=== PATIENT | female | born 1965 | race Caucasian/White ===

== ENCOUNTER → 2023-04-09 | Outpatient (CLI) | payer OTHER ==
--- NOTE | 2023-04-13 09:31 | MR ---
EXAMINATION TYPE: MR shoulder LT wo con DATE OF EXAM: 04/09/2023 COMPARISON: X-ray 03/23/2023 HISTORY: L shoulder pain TECHNIQUE: Multiplanar, multisequence imaging of the left shoulder is performed without contrast. FINDINGS: Rotator Cuff: Marked thickening and increased signal involving the distal 1.5 cm of the infraspinatus and supraspinatus tendons compatible severe tendinosis. There is a loss of visualization of the 5 mm of the anterior fibers at the insertion of the supraspinatus tendon. Findings suspicious for partial thickness degenerative tear. Acromioclavicular Joint: Hypertrophic changes and severe narrowing the AC joint with impingement of t he supraspinatus tendon and muscle. Glenohumeral Joint: Joint spaces preserved with a tiny joint effusion. There is thickening of the inf erior glenohumeral ligament and axillary recess which could be associated with sprain and correlate f or symptoms of frozen shoulder. Coracohumeral ligament appears to measure 2 mm and within normal limi ts. Labrum: There is a large area of abnormal signal suspicious for a SLAP tear Biceps Tendon: The long head of biceps is in normal location within bicipital groove. Bone marrow signal: Degenerative marrow signal involving the AC joint. Other: No additional significant abnormality is appreciated. IMPRESSION: 1. SLAP tear 2. Severe tendinosis of the distal 1.5 cm of the infraspinatus and supraspinatus tendons extending to the insertion. Findings are suspicious for a 5 mm partial non through thickness degenerative tear of the anterior fibers of the supraspinatus tendon at its insertion. 3. Thickening of the inferior glenohumeral ligament. This can be associated with a sprain. Correlate for symptoms of frozen shoulder. 4. Impingement secondary to AC joint arthropathy.
== END | disposition home or self-care (01) ==
LOC: RADMRIMAIN 12:28
PROVIDERS: ATTEND Orthopaedic Surgery
DX: S43.432A Superior glenoid labrum lesion of left shoulder, initial encounter (principal); M19.012 Primary osteoarthritis, left shoulder; M67.814 Other specified disorders of tendon, left shoulder

== ENCOUNTER → 2023-05-03 | Outpatient (CLI) | payer OTHER ==
[2023-05-03 13:28] LABS: Basophils # (A) 0.04 X 10*3/uL (0.00-0.10); Basophils % (A) 0.8 %; Eosinophils # (A) 0.12 X 10*3/uL (0.04-0.35); Eosinophils % (A) 2.4 %; HCT 40.3 % (37.2-46.3); HGB 13.3 d/dL (12.0-15.0); Lymphocytes # (A) 1.58 X 10*3/uL (0.90-5.00); Lymphocytes % (A) 32.1 %; MCH 32.4 pg (27.0-32.0); MCV 98.1 FL (80.0-97.0); Mean Platelet Volume 9.7 FL (9.5-12.2); Monocytes # (A) 0.45 X 10*3/uL (0.20-1.00); Monocytes % (A) 9.1 %; NRBC Per 100 WBC 0 X 10*3/uL (0.00-0.01); Neutrophils # (A) 2.72 X 10*3/uL (1.80-7.70); Neutrophils % (A) 55.4 %; Platelet Count 374 X 10*3/uL (140-440); RBC 4.11 X 10*6/uL (4.10-5.20); RDW 12.3 % (11.5-14.5); WBC 4.92 X 10*3/uL (4.50-10.00)
[2023-05-03 14:07] LABS: Anion Gap 9.7 mmol/L (4.00-12.00); Carbon Dioxide 25.3 mmol/L (21.6-31.8); Potassium 4.6 mmol/L (3.5-5.5)
== END | disposition home or self-care (01) ==
LOC: LABPAT 07:48
PROVIDERS: ATTEND Orthopaedic Surgery
DX: Z01.818 Encounter for other preprocedural examination (principal); M75.41 Impingement syndrome of right shoulder
CPT/HCPCS: 80051; 85025; 93005

== ENCOUNTER 2023-05-19 06:01 | Day surgery (SDC) | payer OTHER ==
--- NOTE | 2023-05-18 13:47 | HP ---
HISTORY AND PHYSICAL DATE OF SCHEDULED SURGERY: 05/19/2023. HISTORY OF PRESENT ILLNESS: Terra Ibrahim is a 57-year-old patient seen with progressive left shoulder pain. We discussed options regarding treatment, she elected to proceed with left shoulder arthroscopy. Consent obtained. PAST MEDICAL HISTORY: Asthma, hypertension, hyperlipidemia. PAST SURGICAL HISTORY: section, carotid endarterectomy. DAILY MEDICATIONS: 1. Albuterol. 2. Aspirin. 3. Enalapril. 4. Motrin. 5. Rosuvastatin. ALLERGIES: Neosporin. SOCIAL HISTORY: She denies current tobacco use. PHYSICAL EVALUATION OF LEFT SHOULDER: Flexion is 90 degrees, abduction is 90 degrees. External rotation is 40 degrees with pain and weakness. Tenderness along the anterolateral acromion rotator cuff insertion. Impingement positive at 70 degrees. Cross-body adduction sign is positive. Drop-arm sign is positive. Distal neurovascular exam is intact. RADIOGRAPHS: Left shoulder radiographs revealed a type 2 acromion evidence for acromioclavicular joint osteoarthritis, cystic changes of the greater tuberosity. MRI left shoulder revealed rotator cuff tear, labral tear, impingement along with acromioclavicular joint osteoarthritis. IMPRESSION: 1. Left shoulder impingement with rotator cuff tear. 2. Left shoulder labral tear. 3. Left shoulder acromioclavicular joint osteoarthritis. 4. Left shoulder adhesive capsulitis. 5. Hypertension. 6. Hyperlipidemia. PLAN: Left shoulder arthroscopy, subacromial decompression, arthroscopic rotator cuff repair, Landy procedure, debridement of labral tear and arthroscopic lysis of adhesions. MMODL / IJN: [id number] /
[2023-05-19] MEDS ORDERED: ONDANSETRON 4 MG/2 ML VIAL IVP ONE (06:47)
[2023-05-19] MEDS ORDERED: LACTATED RINGERS 1,000 ML IV SCH (06:47)
[2023-05-19] MEDS ORDERED: DEXAMETHASONE SOD PHOSPHATE 4 MG/ML 1 ML VIAL IV ONE (06:47)
[2023-05-19] MEDS ORDERED: droPERidol 5 MG/2 ML VIAL IVP ONE (06:47)
[2023-05-19] MEDS ORDERED: LIDOCAINE 1% (10MG/ML) FOR IV START INTRADERMA PRN (06:47)
[2023-05-19] MEDS ORDERED: MORPHINE SULFATE 4 MG/ML SYRINGE IV PRN (07:00)
[2023-05-19] MEDS ORDERED: LACTATED RINGERS 1,000 ML IV ONE (07:05)
[2023-05-19 07:47] VITALS: TEMP 97
[2023-05-19] MEDS ORDERED: MIDAZOLAM 2 MG/2 ML VIAL IVP ONE (08:03)
[2023-05-19] MEDS ORDERED: WATER FOR INJECTION, STERILE 10 ML VIAL IV ONE (08:10)
[2023-05-19] MEDS ORDERED: ROPIVACAINE 5 MG/ML 30 ML VIAL ONE (08:10)
[2023-05-19] MEDS ORDERED: SUCCINYLCHOLINE CHLORIDE 200 MG/10 ML VIAL IV ONE (08:10)
[2023-05-19] MEDS ORDERED: ePHEDrine 50 MG/ML 1 ML VIAL ONE (08:10)
[2023-05-19] MEDS ORDERED: LIDOCAINE 2% INJ 20 MG/ML (2 ML VIAL) ONE (08:10)
[2023-05-19] MEDS ORDERED: ROCURONIUM 10 MG/ML (5 ML VIAL) IV ONE (08:10)
[2023-05-19] MEDS ORDERED: PROPOFOL 10 MG/ML 20 ML VIAL IV ONE (08:10)
[2023-05-19] MEDS ORDERED: fentaNYL (PF) 50 MCG/ML 2 ML AMP ONE (08:10)
--- NOTE | 2023-05-19 09:52 | P.ANPRN ---
Procedure Note - Anesthesia - Nerve Block Performed Left Interscalene Time Out Performed: Yes (08:) Date of Procedure: 05/19/23 Procedure Start Time: Procedure Stop Time: Location of Patient: PreOp Indication: Acute Post-Operative Pain, Requested by Surgeon (Dr Lyons) Sedation Type: Sedate with meaningful contact maintained Preparation: Sterile Prep Position: Supine Catheter: None Needle Types: Pajunk Needle Gauge: Other (see comment) (22g) Ultrasound used to visualize needle placement: Yes Ultrasound used to observe medication spread: Yes Injectate: 0.5% Ropivacaine (see comment for volume) (20cc) Blood Aspirated: No Pain Paresthesia on Injection Noted: No Resistance on Injection: Normal Image Stored and Saved: Yes Events: Uneventful and Well Tolerated
--- NOTE | 2023-05-19 09:59 | P.OP ---
Date of Procedure: 05/19/23 Preoperative Diagnosis: Left shoulder impingement Postoperative Diagnosis: 1. Left shoulder rotator cuff tear 2. Left shoulder impingement 3. Left shoulder bicipital tendinitis 4. Left shoulder acromioclavicular joint osteoarthritis 5. Left shoulder superficial labral tear Procedure(s) Performed: 1. Left shoulder arthroscopic rotator cuff repair 2. Left shoulder arthroscopic subacromial 3. Left shoulder arthroscopic biceps tenodesis 4. Left shoulder arthroscopic Landy procedure 5. Left shoulder arthroscopic debridement labral tear Implants: 1Arthrex 5.5 swivel lock anchor 1Arthrex 4.75 swivel lock anchor Anesthesia: GETA, regional (Interscalene block) Surgeon: Andrzej Lyons Prospecting Driller Helper #1: Shiv Coleman Estimated Blood Loss (ml): 11 Pathology: none sent Condition: stable Disposition: PACU Indications for Procedure: 57-year-old patient seen with progressive left shoulder pain. After having treatment options discussed, she elected to proceed with arthroscopy. Operative Findings: See description of procedure Description of Procedure: Patient underwent an interscalene block by department of anesthesia. The patient was then taken to the operative suite. The patient underwent a general anesthetic by the department of anesthesia. The patient was placed into a lateral position and secured. There was appropriate padding of the bony promine nce. Left shoulder was then prepped and draped in normal sterile orthopedic fashion. We placed the extremity in 10 pounds of longitudinal traction. A posterior incision was now made for a posterior working portal site. The trocar and cannula were inserted into the glenohumeral joint. Arthroscopy was initiated. Spinal needle was now inserted anteriorly, to ascertain the anterior working portal site. An incision was now made in that area, a trocar was inserted followed by a probe. There was some superficial tearing of the superior labrum. There were mild grade 1 chondromalacia changes of the glenoid fossa. The remainder labrum appeared stable. There was evidence for bicipital tendinitis. At this point I debrided out the superficial labral tear. I decided post with arthroscopic biceps tenodesis. I anterior portal site was enlarged to accommodate a cannula. I now passed a stitch through the biceps tendon for a loop intact type tenodesis. I now released the biceps tendon from the superior labrum. With the assistance of Franko SAUER now punched a hole in the interval area for our biceps tenodesis. The suture was now passed through the opportunity Arthrex 4.5 swivel lock anchor. I placed the eyelet into our pre-punch hole and held in position while Franko SAUER tension the suture and deployed anchor with good fixation noted. The residual suture limb was clipped. We had a stable appearing biceps tenodesis. Instruments now removed from the glenohumeral joint. Utilizing the posterior working portal site, the trocar and cannula were inserted into the subacromial space. Arthroscopy initiated. I made an incision 2 fingerbreadths lateral to the acromion. I introduced my trocar followed by my ArthroCare ablator. I now began ablating thick subacromial bursal tissue, which exposed the undersurface of the anterior acromion. There was diminished subacromial space. There was a very prominent anterior acromion. A motorized bur was introduced and a subacromial decompression was performed. I also excised some osteophytes off the inferior aspect of the distal clavicle. The AC joint was visualized and noted to be fairly arthritic. The motorized bur was introduced in the anterior portal site and a Landy procedure was performed without difficulty, decompressing the AC joint nicely. I turned my attention to the rotator cuff. There was a 1 cm rotator cuff tear. I debrided the margins getting down to stable tendon tissue. I introduced my motorized bur and abraded the footprint area, getting some petechial bleeding. The defects/tear measuring 1.5 cm and was freely mobile over the footprint. With the assistance of Franko SAUER passed 2 everted mattress sutures through good bites of rotator cuff tendon. I punched along the footprint area for insertion of an anchor. All 4 limbs of suture were passed through the eyelet on Arthrex 5.5 swivel lock anchor. I placed the eyelet into our pre-punch hole. I held in position while Franko SAUER tension all 4 limbs of suture and deployed anchor with good fixation noted. All residual suture limbs were now clipped. We had good compression of the tendon along the entire footprint. Instruments now removed from the portal sites. All portal sites were approximated with nylon suture. Sterile dressings were applied followed by a shoulder sling. Shiv SAUER assisted in this complex case. The patient was awakened, transferred to a bed, and taken to recovery in stable condition.
[2023-05-19 10:19] VITALS: RESP 16
[2023-05-19 11:44] VITALS: BP 118/76; PULSE 72
== END 2023-05-19 11:45 | disposition home or self-care (01) ==
LOC: OR 06:01
PROVIDERS: ATTEND Orthopaedic Surgery
DX: M75.102 Unspecified rotator cuff tear or rupture of left shoulder, not specified as traumatic (principal); M75.42 Impingement syndrome of left shoulder; S43.432A Superior glenoid labrum lesion of left shoulder, initial encounter; X58.XXXA Exposure to other specified factors, initial encounter; M75.22 Bicipital tendinitis, left shoulder; M19.012 Primary osteoarthritis, left shoulder; I10 Essential (primary) hypertension; E78.5 Hyperlipidemia, unspecified; Z79.82 Long term (current) use of aspirin; Z79.51 Long term (current) use of inhaled steroids; Z79.811 Long term (current) use of aromatase inhibitors; Z79.899 Other long term (current) drug therapy; Z88.1 Allergy status to other antibiotic agents; Z87.891 Personal history of nicotine dependence; I63.9 Cerebral infarction, unspecified; I25.10 Atherosclerotic heart disease of native coronary artery without angina pectoris; J44.9 Chronic obstructive pulmonary disease, unspecified; Z98.890 Other specified postprocedural states
CPT/HCPCS: 29827; 29828; 29826; 64415; 29824; C1713 ×3; J2250; J0330; J1100; J2405; J0690; J3010; J2795; J2704; J2001

== ENCOUNTER 2023-10-19 06:41 | Day surgery (SDC) | payer OTHER ==
[~2023-10-19 06:41] MED LIST: LACTATED RINGERS 1,000 ML IV SCH
[2023-10-19] MEDS ORDERED: LACTATED RINGERS 1,000 ML IV ONE (07:15)
[2023-10-19 07:28] VITALS: TEMP 96.9
[2023-10-19] MEDS ORDERED: PROPOFOL 10 MG/ML 20 ML VIAL IV ONE (07:47)
--- NOTE | 2023-10-19 08:01 | P.PCN ---
Date of Procedure: 10/19/23 Procedure(s) Performed: BRIEF HISTORY: Patient is a 58-year-old pleasant female scheduled for an elective colonoscopy as a part of screening for colon cancer PROCEDURE PERFORMED: Colonoscopy. PREOPERATIVE DIAGNOSIS: Screening for colon cancer. . IV sedation per Anesthesia. PROCEDURE: After informed consent was obtained, the patient, was brought into the endoscopy unit. IV sedation was administered by Anesthesia under continuous monitoring. Digital rectal examination was normal. Initially the Olympus CF-160 flexible video colonoscope was then inserted in the rectum, gradually advanced into the cecum without any difficulty. Careful examination was performed as the scope was gradually being withdrawn. Ileocecal valve and the appendiceal orifice were visualized and appeared normal. Prep was excellent. Mucosa of the cecum, ascending colon, transverse colon, descending colon, sigmoid colon, and rectum appeared normal. Retroflexion was performed in the rectum and no lesions were seen. The patient tolerated the procedure well. IMPRESSION: Normal-appearing colon from rectum to cecum with no evidence of colorectal neoplasia . RECOMMENDATIONS: Findings of this examination were discussed with the patient as well as her family. She was advised to have a repeat screening colonoscopy in 10 years..
[2023-10-19 08:16] VITALS: RESP 16
[2023-10-19 08:41] VITALS: BP 130/84; PULSE 70
== END 2023-10-19 08:32 | disposition home or self-care (01) ==
LOC: ORWHC2ENDO 06:41
PROVIDERS: ATTEND Internal Medicine Gastroenterology
DX: Z12.11 Encounter for screening for malignant neoplasm of colon (principal); I25.10 Atherosclerotic heart disease of native coronary artery without angina pectoris; I10 Essential (primary) hypertension; E78.5 Hyperlipidemia, unspecified; J44.9 Chronic obstructive pulmonary disease, unspecified; F42.9 Obsessive-compulsive disorder, unspecified; K21.9 Gastro-esophageal reflux disease without esophagitis; F17.200 Nicotine dependence, unspecified, uncomplicated; M19.90 Unspecified osteoarthritis, unspecified site; I73.9 Peripheral vascular disease, unspecified; Z86.73 Personal history of transient ischemic attack (TIA), and cerebral infarction without residual deficits; Z79.51 Long term (current) use of inhaled steroids; Z79.82 Long term (current) use of aspirin; Z79.899 Other long term (current) drug therapy; Z98.890 Other specified postprocedural states; Z88.1 Allergy status to other antibiotic agents; Z88.2 Allergy status to sulfonamides
CPT/HCPCS: 45378; J2704